=== PATIENT | female | born 1995 | race Two or more races ===

== ENCOUNTER 2019-07-06 10:19 | Emergency (ER) | payer MEDICAID, OTHER ==
[~2019-07-06] VITALS: Ht 162.6 cm; Wt 108.0 kg
--- NOTE | 2019-07-06 10:51 | NUR ---
23 Y/O FEMALE PRESENTS TO ED WITH C/O N/V. PER PT "I SUDDENLY GOT NAUSEOUS AT WORK. I FELT LIKE I WAS GOING TO THROW UP. I DIDN'T, BUT FELT LIKE IT. I ALSO FELT A LIKE I WAS GOING TO PASS OUT. I FEEL BETTER NOW." NADN. PT PLACED ON CONT PULSE OX, NIBP. NO C/O N/D, TRAUMA, SYNCOPE, CP, SOB. PT GIVEN WARM BLANKETS.
[2019-07-06 11:17] LABS: BASOPHILS # (AUTO) 0.05 x10^3/uL (0-0.1); BASOPHILS % (AUTO) 0 % (0-1); EOSINOPHILS # (AUTO) 0.03 x10^3/uL (0-0.4); EOSINOPHILS % (AUTO) 0 % (1-7); LYMPHOCYTES # (AUTO) 2.89 x10^3/uL (1-3.4); LYMPHOCYTES % (AUTO) 25 % (22-44); MD NO; MEAN CORPUSCULAR HEMOGLOBIN 29.7 pg (27.0-34.8); MEAN CORPUSCULAR VOLUME 89.9 fL (80-100); MEAN PLATELET VOLUME 8.9 fL (7.4-10.4); MONOCYTES # (AUTO) 0.49 x10^3/uL (0.2-0.8); MONOCYTES % (AUTO) 4 % (2-9); NEUTROPHILS # (AUTO) 8.04 x10^3/uL (1.8-6.8); NEUTROPHILS % (AUTO) 70 % (42-75); PLATELET COUNT 292 x10^3/uL (130-400); RED BLOOD COUNT 4.27 x10^6/uL (3.82-5.3)
[2019-07-06 11:28] LABS: ALBUMIN 3.2 g/dL (3.4-5.0); ANION GAP 5 mmol/L (5-15); CALCIUM 8.9 mg/dL (8.5-10.1); CHLORIDE 109 mmol/L (98-107); CREATININE 0.77 mg/dL (0.55-1.02)
[2019-07-06 11:46] VITALS: BP 116/67
--- NOTE | 2019-07-06 12:12 | NUR ---
Patient/Caregiver given discharge instructions and they have confirmed that they understand the instructions. Patient ambulatory with steady gait. PT LEFT WITH ALL PERSONAL BELONGINGS.
== END 2019-07-06 12:18 | disposition home or self-care (01) ==
LOC: ED 11:19
DX: R55 Syncope and collapse (principal); R11.0 Nausea
CPT/HCPCS: 36415; 80048; 82040; 84703; 85025; 93005; 99284